=== PATIENT | female | born 1980 | race Hispanic/Latino ===

== ENCOUNTER 2018-08-07 00:45 | Inpatient (IN) | payer OTHER ==
[2018-08-07] MEDS ORDERED: HYDROmorphone 1 mg/ml ISec IVP PRN (03:56)
[2018-08-07] MEDS ORDERED: Morphine 4 MG/ML VIAL IVP PRN (03:56)
[2018-08-07] MEDS ORDERED: Sodium Chloride 0.9% 1,000 ML IV SCH (04:00)
--- NOTE | 2018-08-07 04:00 | ED PDOC ---
HPI: Chest Pain Time Seen by Provider: 08/07/18 01:06 Chief Complaint (Nursing): Rib Injury Chief Complaint (Provider): Rib Fx History/Exam Limitations: no limitations Onset/Duration Of Symptoms: Mins (less than 30) Quality: Sharp (Pt presents to the ED after falling at home following a night of drinking and injuring her left ribs on a piece of furniture; Pt denies other trauma or injury but complains of difficulty breathing intermittently. Pt denies NVD) Past Medical History Reviewed: Historical Data, Nursing Documentation, Vital Signs Vital Signs: Last Vital Signs Temp 98.8 F 08/07/18 01:00 Pulse 94 H 08/07/18 03:20 Resp 18 08/07/18 03:20 BP 99/55 L 08/07/18 03:20 Pulse Ox 100 08/07/18 03:30 - Family History Family History: States: Unknown Family Hx - Allergies Allergies/Adverse Reactions: Allergies Allergy/AdvReac Type Severity Reaction Status Date / Time No Known Allergies Allergy Verified 08/07/18 01:01 Review of Systems ROS Statement: Except As Marked, All Systems Reviewed And Found Negative Respiratory: Positive for: Pleuritic Pain Musculoskeletal: Positive for: Other (rib pain left side just below bra line) Physical Exam - Reviewed Nursing Documentation Reviewed: Yes Vital Signs Reviewed: Yes - Physical Exam Appears: Positive for: Well, Non-toxic, No Acute Distress, Uncomfortable Head Exam: Positive for: ATRAUMATIC, NORMAL INSPECTION Skin: Positive for: Normal Color, Warm, Dry. Negative for: Diaphoresis, Pallor, Rash Neck: Positive for: Normal, Painless ROM, Supple. Negative for: Decreased ROM Cardiovascular/Chest: Positive for: Regular Rate, Rhythm. Negative for: Chest Non Tender (tenderness to the left side laterally) Respiratory: Positive for: Decreased Breath Sounds (on the left). Negative for: Wheezing, Respiratory Distress Pulses-Carotid (L): 2+ Pulses-Carotid (R): 2+ Pulses-Radial (L): 2+ Pulses-Radial (R): 2+ - ECG O2 Sat by Pulse Oximetry: 100 Medical Decision Making Medical Decision Making: I: R/O Rib Fx vs Pneumo P: Rib xray: wet read of three fx ribs on left side possible pneumothorax. Xray pushed to [facility] confirms the wet reading findings Surgery Resident contacted and consult to Dr Garay Pt Placed on high velocity O2; her sats remain above 98% and she is comfortable Surgery Resident indicates admission to [facility] under Dr aGray service; plan for pneumo will be conservative obseration over night. Orders placed for Admit Bridge orders placed to ensure smooth transition of care Disposition - Clinical Impression Clinical Impression: Rib fractures, Pneumothorax - Patient ED Disposition Is Patient to be Admitted: Yes Discussed With Dr.: Bigg Garay Doctor Will See Patient In The: Hospital Counseled Patient/Family Regarding: Studies Performed, Diagnosis, Need For Followup - Disposition Disposition Time: 04:05 Condition: STABLE - Pt Status Changed To: Hospital Disposition Of: Inpatient - Admit Certification Admit to Inpatient:: After my assessment, the patient will require hospitalization for at least two midnights. This is because of the severity of symptoms shown, intensity of services needed, and/or the medical risk in this patient being treated as an outpatient.
--- NOTE | 2018-08-07 04:04 | CP.PCM.HP ---
History of Present Illness - History of Present Illness History of Present Illness: General surgery H & P for Dr. Elina Ji PGY-2 Pt seen/examined at bedside 37F w/no sig PMH admitted for left sided pneumothorax s/p fall from standing on evening of admission. Pt reports excessive ETOH use, was in her house when she tripped and fell on a sub-woofer on her left side. Patient reports pain with deep inspiration, SOB. Denies dizziness, CP, N & V, MICHAEL, vision changes, hx of falling, changes in bowel or bladder habits, recent cough, sore throat, or other complaints. In ED- CXR with left sided pneumothorax- <20%, no tension. Patient saturating 97% on RA. PMH: Denies PSH: Denies All: NKDA SH: Admits to ETOH use, denies tobacco use, admits to MJ use (last use was prior to admission) FH: No pulmonary diseases Present on Admission - Present on Admission Any Indicators Present on Admission: No History of DVT/PE: No History of Uncontrolled Diabetes: No Urinary Catheter: No Decubitus Ulcer Present: No Review of Systems - Review of Systems All systems: reviewed and no additional remarkable complaints except - Constitutional Constitutional: absent: Chills, Fever - EENT Eyes: absent: Change in Vision Ears: absent: Dizziness Nose/Mouth/Throat: absent: Sore Throat - Cardiovascular Cardiovascular: absent: Chest Pain - Respiratory Respiratory: Pain on Inspiration (deep). absent: Cough - Gastrointestinal Gastrointestinal: absent: Change in Bowel Habits - Genitourinary Genitourinary: absent: Change in Urinary Stream - Musculoskeletal Musculoskeletal: Back Pain (left sided) - Neurological Neurological: absent: Dizziness, Weakness Meds Allergies/Adverse Reactions: Allergies Allergy/AdvReac Type Severity Reaction Status Date / Time No Known Allergies Allergy Verified 08/07/18 01:01 Physical Exam - Constitutional Appears: Non-toxic, No Acute Distress - Head Exam Head Exam: ATRAUMATIC, NORMAL INSPECTION, NORMOCEPHALIC - Eye Exam Eye Exam: EOMI, Normal appearance - ENT Exam ENT Exam: Mucous Membranes Moist, Normal Exam - Neck Exam Neck exam: Positive for: Full Rom, Normal Inspection - Respiratory Exam Respiratory Exam: Chest Wall Tenderness (left lateral/posterior aspect), Decr eased Breath Sounds (at apex of left side), Clear to Auscultation Bilateral, NORMAL BREATHING PATTERN. absent: Accessory Muscle Use, Rales, Rhonchi, Wheezes, Respiratory Distress - Cardiovascular Exam Cardiovascular Exam: REGULAR RHYTHM, +S1, +S2 - GI/Abdominal Exam GI & Abdominal Exam: Normal Bowel Sounds, Soft. absent: Distended, Tenderness - Extremities Exam Extremities exam: Positive for: normal inspection - Back Exam Back exam: tenderness (left sided) - Neurological Exam Neurological exam: Alert, CN II-XII Intact, Oriented x3 - Psychiatric Exam Psychiatric exam: Normal Affect, Normal Mood - Skin Skin Exam: Abrasion (left mid thorax), Normal Color, Warm Results - Vital Signs Recent Vital Signs: Last Vital Signs Temp 98.8 F 08/07/18 01:00 Pulse 94 H 08/07/18 03:20 Resp 18 08/07/18 03:20 BP 99/55 L 08/07/18 03:20 Pulse Ox 100 08/07/18 04:00 Assessment & Plan - Assessment and Plan (Free Text) Assessment: 37F w/small left pneumothorax due to fall from standing Plan: Admit to surgical service Admit to med-surg floor Vitals Q8H Pain control- Tylenol, Morphine, Dilaudid O2 PRN target SaO2>95% NPO for now IVF Anti-emetic Daily CXR - monitor for resolution vs. progression of pnemothorax Ambulate SCDs heparin SQ for DVT ppx Plan to place pigtail if pneumothorax progresses or does not resolve DW Dr. Garay - Date & Time Date: 08/07/18 Time: 04:06
[2018-08-07 04:50] LABS: BASO # 0.1 K/uL (0.0-0.2); BASO % 0.5 % (0.0-2.0); LYMPH # 1.7 K/uL (1.0-4.3); LYMPH % 13.1 % (20.0-40.0); MEAN CELL VOLUME 97.8 fl (81.0-99.0); MEAN CORPUSCULAR HEMOGLOBIN 33.1 pg (27.0-31.0); MEAN CORPUSCULAR HGB CONC 33.9 g/dL (33.0-37.0); MEAN PLATELET VOLUME 8.1 fl (7.2-11.7); MONO # 0.6 K/uL (0.0-0.8); MONO % 4.5 % (0.0-10.0); NEUT # 10.3 K/uL (1.8-7.0); NEUT % 81.9 % (50.0-75.0); RBC 3.93 Mil/uL (3.80-5.20); RED CELL DISTRIBUTION WIDTH 12.9 % (11.5-14.5); WHITE BLOOD COUNT 12.6 K/uL (4.8-10.8)
[2018-08-07 04:53] LABS: ALB/GLOB RATIO 1.3 (1.0-2.1); ALBUMIN 4.7 g/dL (3.5-5.0); ALT/SGPT 23 U/L (9-52); AST/SGOT 32 U/L (14-36); BLOOD UREA NITROGEN 12 mg/dl (7-17); GFR NON-AFRICAN AMERICAN > 60
[2018-08-07 07:06] LABS: HEMOGLOBIN 12.8 g/dL (12.0-16.0); MEAN CELL VOLUME 98.2 fl (81.0-99.0); MEAN CORPUSCULAR HEMOGLOBIN 33.6 pg (27.0-31.0); MEAN CORPUSCULAR HGB CONC 34.2 g/dL (33.0-37.0); RBC 3.8 Mil/uL (3.80-5.20); RED CELL DISTRIBUTION WIDTH 13.1 % (11.5-14.5); WHITE BLOOD COUNT 10.1 K/uL (4.8-10.8)
--- NOTE | 2018-08-07 07:20 | CP.PCM.PN ---
Subjective - Date & Time of Evaluation Date of Evaluation: 08/07/18 Time of Evaluation: 07:18 - Subjective Subjective: Gen Sx: Dr Garay Pt seen and examined on 6T. Resting comfortably, no acute distress. Reports pain is well controlled. Has non-rebreather on but for 'comfort' as pt had no desaturations. Reports wanting to go home, instructed needs to be off O2 first with adequate pain control. CXR pending Denies n/v, f/c, sob, Pain at site of left sided rib fx Objective - Vital Signs/Intake and Output Vital Signs (last 24 hours): Temp Pulse Resp BP Pulse Ox 98.5 F 88 18 97/51 L 98 08/07/18 05:35 08/07/18 05:35 08/07/18 05:35 08/07/18 05:35 08/07/18 05:35 - Medications Medications: Current Medications Acetaminophen (Tylenol 325mg Tab) 650 mg PO Q6 PRN PRN Reason: Pain, Mild (1-3) Heparin Sodium (Porcine) (Heparin) 5,000 units SC Q8 ODETTE; Protocol Ketorolac Tromethamine (Toradol) 15 mg IVP Q6 ODETTE Lidocaine (Lidoderm) 1 ea TD DAILY ODETTE Ondansetron HCl (Zofran Inj) 4 mg IVP Q6 PRN PRN Reason: Nausea/Vomiting - Labs Labs: 08/07/18 03:45 08/07/18 03:45 - Constitutional Appears: Non-toxic, No Acute Distress - Head Exam Head Exam: ATRAUMATIC - Eye Exam Eye Exam: Normal appearance - ENT Exam ENT Exam: Mucous Membranes Moist - Respiratory Exam Respiratory Exam: absent: Accessory Muscle Use, Respiratory Distress - Cardiovascular Exam Cardiovascular Exam: REGULAR RHYTHM. absent: Tachycardia - GI/Abdominal Exam GI & Abdominal Exam: Soft. absent: Distended, Tenderness Assessment and Plan - Assessment and Plan (Free Text) Assessment: 37F with left sided rib fx and small apical pneumo Plan: repeat CXR at 9AM d/c narcotics Toradol ATC, tylenol, lidoderm patches incentive spirometer possible d/c this afternoon vs tomorrow pending imaging will madi Dunne, PGY4
[2018-08-07 07:25] LABS: BLOOD UREA NITROGEN 12 mg/dl (7-17); CALCIUM 8.7 mg/dL (8.4-10.2); GFR NON-AFRICAN AMERICAN > 60
[2018-08-07] MEDS ORDERED: Lidocaine 5% Patch TD SCH (09:00)
--- NOTE | 2018-08-07 11:07 | RAD ---
Date of service: 08/07/2018 PROCEDURE: Radiographs of the Chest and Left Ribs. HISTORY: r/o fx and pneumo COMPARISON: None available. TECHNIQUE: Frontal radiograph of the chest and multiple oblique radiographs of the left ribs were obtained. FINDINGS: LEFT RIBS: Minimally displaced fractures of the left neural lateral 4th-6th ribs. LUNGS: Clear. PLEURA: Small left apical pneumothorax. CARDIOVASCULAR: Normal cardiac size. No pulmonary vascular congestion. No aortic atherosclerotic calcification present OTHER FINDINGS: None. IMPRESSION: Minimally displaced fractures of the left lateral 4th-6th ribs. Small left apical pneumothorax.
--- NOTE | 2018-08-07 11:16 | RAD ---
Date of service: 08/07/2018 HISTORY: Pneumothorax evaluation COMPARISON: No prior. TECHNIQUE: Chest PA and lateral FINDINGS: LUNGS: No active pulmonary disease. PLEURA: Small left apical pneumothorax. CARDIOVASCULAR: No aortic atherosclerotic calcification present. Normal cardiac size. No pulmonary vascular congestion. OSSEOUS STRUCTURES: Minimally displaced left lateral 4th-6th rib fractures. VISUALIZED UPPER ABDOMEN: Normal. OTHER FINDINGS: None. IMPRESSION: Minimally displaced left lateral 4th-6th rib fractures. Small left apical pneumothorax.
--- NOTE | 2018-08-07 11:49 | RAD ---
Date of service: 08/07/2018 PROCEDURE: CHEST RADIOGRAPH, 1 VIEW HISTORY: eval pneumo COMPARISON: Chest radiograph performed approximately 5 hours prior FINDINGS: LUNGS: Clear. PLEURA: Small left apical pneumothorax. CARDIOVASCULAR: No aortic atherosclerotic calcification present. Normal. OSSEOUS STRUCTURES: Left lateral 4th-6th rib fractures. VISUALIZED UPPER ABDOMEN: Normal. OTHER FINDINGS: None. IMPRESSION: Minimally displaced left lateral 4th and 6th rib fractures. Stable small left apical pneumothorax.
[2018-08-07] MEDS ORDERED: Oxycodone/Acetaminophen 5/325 mg Tab PO PRN (17:55)
[2018-08-07] MEDS: Lidocaine 5% Patch TD SCH (18:46)
--- NOTE | 2018-08-08 07:25 | CP.PCM.PN ---
Subjective - Date & Time of Evaluation Date of Evaluation: 08/08/18 Time of Evaluation: 07:23 - Subjective Subjective: Gen Sx: Dr Garay 37 y/o female patient seen and examined this morning. Patient is resting comfortably, and in no acute distress. Reports pain is well controlled. Patient currently on nasal cannula. Patient Denies n/v, f/c, sob Objective - Vital Signs/Intake and Output Vital Signs (last 24 hours): Temp Pulse Resp BP Pulse Ox 98.5 F 75 18 100/64 100 08/08/18 00:18 08/08/18 00:18 08/08/18 00:18 08/08/18 00:18 08/08/18 00:18 - Medications Medications: Current Medications Acetaminophen (Tylenol 325mg Tab) 650 mg PO Q6 PRN PRN Reason: Pain, Mild (1-3) Heparin Sodium (Porcine) (Heparin) 5,000 units SC Q8 ODETTE; Protocol Last Admin: 08/08/18 01:50 Dose: 5,000 units Ketorolac Tromethamine (Toradol) 15 mg IVP Q6 ODETTE Last Admin: 08/08/18 05:11 Dose: 15 mg Lidocaine (Lidoderm) 2 ea TD DAILY ODETTE Last Admin: 08/07/18 18:46 Dose: 2 ea Ondansetron HCl (Zofran Inj) 4 mg IVP Q6 PRN PRN Reason: Nausea/Vomiting Oxycodone/Acetaminophen (Percocet 5/325 Mg Tab) 1 tab PO Q6 PRN PRN Reason: Pain, severe (8-10) Stop: 08/10/18 17:56 - Labs Labs: 08/07/18 06:50 08/07/18 06:50 - Constitutional Appears: Non-toxic, No Acute Distress - Head Exam Head Exam: ATRAUMATIC, NORMAL INSPECTION - Eye Exam Eye Exam: Normal appearance - ENT Exam ENT Exam: Mucous Membranes Moist - Respiratory Exam Respiratory Exam: absent: Accessory Muscle Use, Respiratory Distress - Cardiovascular Exam Cardiovascular Exam: REGULAR RHYTHM. absent: Tachycardia - GI/Abdominal Exam GI & Abdominal Exam: Soft. absent: Firm, Guarding Assessment and Plan - Assessment and Plan (Free Text) Assessment: 37 y/o female with left sided rib fx and small apical pneumo Plan: Patient asymptomatic at this time Repeat CXR: pneumothorax same to slightly decreased compared to previous x-ray d/c narcotics d/c nasal cannula, monitor patient saturation Toradol ATC, tylenol, lidoderm patches encourage OOB ambulation and incentive spirometry patient will require repeat CXR in 2 days as outpatient will d/w Dr Jarrod Crooks, PGY1
[2018-08-08] MEDS: Lidocaine 5% Patch TD SCH (09:01)
--- NOTE | 2018-08-08 14:36 | CP.PCM.DIS ---
Provider - Provider Date of Admission: 08/07/18 04:42 Attending physician: Bigg Garay MD Consults: 08/07/18 03:28 Surgery [General Surgery Consult] Stat Comment: Consulting Provider: Bigg Garay Consulting Physician: Bigg Garay Reason for Consult: left sided pneumothorax Time Spent in preparation of Discharge (in minutes): 40 Diagnosis - Discharge Diagnosis (1) Pneumothorax Status: Acute (2) Rib fractures Status: Acute Hospital Course - Lab Results Lab Results: Most Recent Lab Values WBC 10.1 K/uL (4.8-10.8) 08/07/18 06:50 RBC 3.80 Mil/uL (3.80-5.20) 08/07/18 06:50 Hgb 12.8 g/dL (12.0-16.0) 08/07/18 06:50 Hct 37.3 % (34.0-47.0) 08/07/18 06:50 MCV 98.2 fl (81.0-99.0) 08/07/18 06:50 MCH 33.6 pg (27.0-31.0) H 08/07/18 06:50 MCHC 34.2 g/dL (33.0-37.0) 08/07/18 06:50 RDW 13.1 % (11.5-14.5) 08/07/18 06:50 Plt Count 276 K/uL (130-400) 08/07/18 06:50 MPV 8.1 fl (7.2-11.7) 08/07/18 03:45 Neut % (Auto) 81.9 % (50.0-75.0) H 08/07/18 03:45 Lymph % (Auto) 13.1 % (20.0-40.0) L 08/07/18 03:45 Zavala % (Auto) 4.5 % (0.0-10.0) 08/07/18 03:45 Eos % (Auto) 0.0 % (0.0-4.0) 08/07/18 03:45 Baso % (Auto) 0.5 % (0.0-2.0) 08/07/18 03:45 Neut # (Auto) 10.3 K/uL (1.8-7.0) H 08/07/18 03:45 Lymph # (Auto) 1.7 K/uL (1.0-4.3) 08/07/18 03:45 Zavala # (Auto) 0.6 K/uL (0.0-0.8) 08/07/18 03:45 Eos # (Auto) 0.0 K/uL (0.0-0.7) 08/07/18 03:45 Baso # (Auto) 0.1 K/uL (0.0-0.2) 08/07/18 03:45 Sodium 144 mmol/l (132-148) 08/07/18 06:50 Potassium 4.0 MMOL/L (3.6-5.0) 08/07/18 06:50 Chloride 104 mmol/L (98-107) 08/07/18 06:50 Carbon Dioxide 24 mmol/L (22-30) 08/07/18 06:50 Anion Gap 20 (10-20) 08/07/18 06:50 BUN 12 mg/dl (7-17) 08/07/18 06:50 Creatinine 0.6 mg/dl (0.7-1.2) L 08/07/18 06:50 Est GFR ( Amer) > 60 08/07/18 06:50 Est GFR (Non-Af Amer) > 60 08/07/18 06:50 Random Glucose 86 mg/dL (65-105) 08/07/18 06:50 Calcium 8.7 mg/dL (8.4-10.2) 08/07/18 06:50 Total Bilirubin 0.2 mg/dl (0.2-1.3) 08/07/18 03:45 AST 32 U/L (14-36) 08/07/18 03:45 ALT 23 U/L (9-52) 08/07/18 03:45 Alkaline Phosphatase 59 U/L (38-126) 08/07/18 03:45 Total Protein 8.2 G/DL (6.3-8.2) 08/07/18 03:45 Albumin 4.7 g/dL (3.5-5.0) 08/07/18 03:45 Globulin 3.5 gm/dL (2.2-3.9) 08/07/18 03:45 Albumin/Globulin Ratio 1.3 (1.0-2.1) 08/07/18 03:45 - Hospital Course Hospital Course: 37F w/no sig PMH admitted for left sided pneumothorax s/p fall from standing on evening of admission. Pt reports excessive ETOH use, was in her house when she tripped and fell on a sub-woofer on her left side. Patient reports pain with deep inspiration, SOB. Denies dizziness, CP, N & V, MICHAEL, vision changes, hx of falling, changes in bowel or bladder habits, recent cough, sore throat, or other complaints. In ED, CXR with left sided pneumothorax- <20%, no tension. Patient saturating 97% on RA. Patient was admitted for L pneumothorax and rib fractures. Patient remained in hospital for pain control and repeat CXR. On 08/07 and 08/08, repeat CXRs were stable. Patient pain remained control. She was feeling better and pneumothorax did not increase so chest tube was not needed at this time. Patient was deemed medically stable for discharge to home. Patient instructed to get CXR as outpatient in 2 days as well follow up with Dr. Garay either 08/09 or 08/12. (This is a summary of the hospital course. Please refer to EMR for more details.) - Date & Time of H&P Date of H&P: 08/07/18 Time of H&P: 04:00 Discharge Exam - Head Exam Head Exam: ATRAUMATIC, NORMAL INSPECTION - Eye Exam Eye Exam: EOMI, Normal appearance - Respiratory Exam Respiratory Exam: Chest Wall Tenderness (Left sided), NORMAL BREATHING PATTERN. absent: Respiratory Distress - Cardiovascular Exam Cardiovascular Exam: REGULAR RHYTHM, +S1, +S2 - GI/Abdominal Exam GI & Abdominal Exam: Normal Bowel Sounds, Soft. absent: Tenderness - Extremities Exam Extremities exam: normal capillary refill, pedal pulses present - Back Exam Back exam: absent: CVA tenderness (L), CVA tenderness (R) - Neurological Exam Neurological exam: Alert, Normal Gait, Oriented x3 - Psychiatric Exam Psychiatric exam: Normal Affect, Normal Mood - Skin Skin Exam: Dry, Intact, Warm Discharge Plan - Discharge Medications Prescriptions: Cyclobenzaprine [Flexeril] 5 mg PO Q8 PRN #20 tab PRN Reason: Muscle Spasm Lidocaine 2% Gel [Xylocaine 2% (Uro-Jet)] 1 appl TP TID #1 tube Lidocaine 5% [Lidoderm] 2 ea TD DAILY #30 patch - Follow Up Plan Condition: STABLE Disposition: HOME/ ROUTINE Instructions: Rib Fracture (DC), Pneumothorax (Collapsed Lung) (DC) Additional Instructions: Take Tylenol, Flexeril, and lidoderm patch/ointmint for pain as prescribed Get repeat Chest X-ray as outpatient in 2 days Follow up with Dr. Garay within 1 week Follow up with PMD within 1 week Please return to ED if symptoms persist or condition worsens Referrals: Bigg Garay MD [Staff Provider] -
--- NOTE | 2018-08-08 15:09 | RAD ---
Date of service: 08/08/2018 HISTORY: pneumothorax COMPARISON: Frontal chest radiographs 08/07/2018. TECHNIQUE: Chest PA and lateral FINDINGS: LUNGS: No active pulmonary disease. PLEURA: No significant pleural effusion identified. No pneumothorax apparent. CARDIOVASCULAR: No aortic atherosclerotic calcification present. Normal cardiac size. No pulmonary vascular congestion. OSSEOUS STRUCTURES: No significant abnormalities. VISUALIZED UPPER ABDOMEN: Normal. OTHER FINDINGS: None. IMPRESSION: No interval acute cardiopulmonary disease appreciated.
[2018-08-08 16:22] VITALS: BP 101/68; PULSE 68; RESP 18; TEMP 98.6; O2SAT 97
== END 2018-08-08 18:40 | disposition home or self-care (01) | DRG 184 ==
LOC: H.ER 00:45 → H.ERHOLD 04:42 → H.MEDSURG1 05:21
PROVIDERS: ADMIT Surgery; ATTEND Surgery
DX: S22.42XA Multiple fractures of ribs, left side, initial encounter for closed fracture (principal); S27.0XXA Traumatic pneumothorax, initial encounter; W01.190A Fall on same level from slipping, tripping and stumbling with subsequent striking against furniture, initial encounter; Y93.9 Activity, unspecified; Y92.009 Unspecified place in unspecified non-institutional (private) residence as the place of occurrence of the external cause; R06.02 Shortness of breath